=== PATIENT | male | born 1950 | race Two or more races ===

== ENCOUNTER 2022-12-21 08:49 | Emergency (ER) | payer OTHER ==
[~2022-12-21] VITALS: Ht 180.3 cm; Wt 79.5 kg
[2022-12-21 09:35] VITALS: BP 141/70
== END 2022-12-21 10:07 | disposition home or self-care (01) ==
LOC: ER 08:49
DX: M79.662 Pain in left lower leg (principal); W18.39XA Other fall on same level, initial encounter; Y93.89 Activity, other specified; Y92.89 Other specified places as the place of occurrence of the external cause; Y99.8 Other external cause status